=== PATIENT | male | born 1980 | race Caucasian/White ===

== ENCOUNTER 2016-08-31 19:04 | Emergency (ER) | payer SELFPAY ==
[2016-08-31 19:29] VITALS: BP 123/89
--- NOTE | 2016-08-31 20:37 | Emergency Department Report ---
ED General Adult HPI - General Chief complaint: Rectal Pain Stated complaint: FOUND MASS IN RECTUM Time Seen by Provider: 08/31/16 20:09 Source: patient Mode of arrival: Ambulatory Limitations: No Limitations - History of Present Illness Initial comments: This is a 36-year-old male that presents with feeling of a fall in his rectum area for the past 3 days. Patient thinks he may have hemorrhoids. Patient denies rectal bleeding, constipation, fever, chills, abdominal pain, nausea or vomiting. Patient that it is a heterosexual. Patient denies history of similar symptoms. Patient does not seem toxic or ill in appearance. No signs of distress noted. MD Complaint: hemorrhoids -: Gradual, days(s) (3) Location: buttocks (rectum) Radiation: non-radiation Severity scale (0 -10): 1 Quality: aching Consistency: constant Improves with: none Worsens with: none Associated Symptoms: denies other symptoms. denies: confusion, chest pain, cough, diaphoresis, headaches, loss of appetite, malaise, nausea/vomiting, rash , shortness of breath, syncope, weakness - Related Data Previous Rx's Medication Instructions Recorded Last Taken Type Hydrocortisone/Lidocaine/Aloe 1 each RC PRN #1 kit 08/31/16 Unknown Rx [Haritha-Kalin 2-2% Kit] Allergies Allergy/AdvReac Type Severity Reaction Status Date / Time No Known Allergies Allergy Verified 08/31/16 19:26 ED Review of Systems ROS: Stated complaint: FOUND MASS IN RECTUM Other details as noted in HPI Constitutional: denies: chills, fever Eyes: denies: eye pain, eye discharge, vision change ENT: denies: ear pain, throat pain Respiratory: denies: cough, shortness of breath, wheezing Cardiovascular: denies: chest pain, palpitations Endocrine: no symptoms reported Gastrointestinal: denies: abdominal pain, nausea, diarrhea Genitourinary: denies: urgency, dysuria Musculoskeletal: denies: back pain, joint swelling, arthralgia Skin: denies: rash, lesions Neurological: denies: headache, weakness, paresthesias Psychiatric: denies: anxiety, depression Hematological/Lymphatic: denies: easy bleeding, easy bruising ED Past Medical Hx - Past Medical History Previous Medical History?: No - Surgical History Past Surgical History?: No - Social History Smoking Status: Never Smoker Substance Use Type: None - Medications Home Medications: Home Medications Medication Instructions Recorded Confirmed Last Taken Type Hydrocortisone/Lidocaine/Aloe 1 each RC PRN #1 kit 08/31/16 Unknown Rx [Haritha-Kalin 2-2% Kit] ED Physical Exam - General Limitations: No Limitations General appearance: alert, in no apparent distress - Head Head exam: Present: atraumatic, normocephalic - Eye Eye exam: Present: normal appearance, PERRL, EOMI - ENT ENT exam: Present: normal exam, normal orophraynx, mucous membranes moist, TM's normal bilaterally - Neck Neck exam: Present: normal inspection, full ROM. Absent: tenderness, lymphadenopathy - Respiratory Respiratory exam: Present: normal lung sounds bilaterally. Absent: respiratory distress, wheezes, rales, rhonchi, stridor - Cardiovascular Cardiovascular Exam: Present: regular rate, normal rhythm. Absent: systolic murmur, diastolic murmur, rubs, gallop - GI/Abdominal GI/Abdominal exam: Present: soft, normal bowel sounds. Absent: distended, tenderness, guarding, rebound, rigid - Rectal Rectal exam: Present: deferred, normal inspection, normal rectal tone, hemorrhoids (1 cm round), tenderness, normal prostate. Absent: decreased rectal tone, heme (-) stool, heme (+) stool, black stool, bloody stool, fecal impaction, mass, prostate tenderness, prostate enlargement - exam: Present: normal inspection. Absent: testicular tenderness, urethral discharge, scrotal swelling, vertical testicular lie External exam: Present: normal external exam. Absent: erythema, swelling, lesions, lacerations, ecchymosis, bleeding - Extremities Exam Extremities exam: Present: normal inspection, full ROM, normal capillary refill. Absent: tenderness, pedal edema, joint swelling - Back Exam Back exam: Present: normal inspection, full ROM. Absent: tenderness, CVA tenderness (R), CVA tenderness (L) - Neurological Exam Neurological exam: Present: alert, oriented X3, CN II-XII intact, normal gait - Psychiatric Psychiatric exam: Present: normal affect, normal mood - Skin Skin exam: Present: warm, dry, intact, normal color. Absent: rash ED Course Vital Signs 08/31/16 19:26 Temperature 98.9 F Pulse Rate 61 Respiratory 16 Rate Blood Pressure 123/89 [Right] O2 Sat by Pulse 100 Oximetry ED Medical Decision Making - Medical Decision Making Ed course: This is a 36-year-old male that presents with a 1 cm hemorrhoid 1- I instructed the patient to increase fiber to reduce the constipation that may lead to hemorrhoids. 2- patient is also instructed that sits baths also helps to reveal irritation and pruritus as well as spasm of the anal spindle muscles. 3- patient was discharged with topical hydrocortisone/lidocaine to reveal acute pain associated with hemorrhoids. 4- patient was instructed to follow-up with her primary care doctor in 3-5 days or if symptoms worsen. 5- at the time of discharge the patient does not seem toxic or ill in appearance. No signs of distress noted. Patient agrees to discharge treatment plan. Critical care attestation.: If time is entered above; I have spent that time in minutes in the direct care of this critically ill patient, excluding procedure time. ED Disposition Clinical Impression: Hemorrhoids Qualifiers: Hemorrhoid type: unspecified Qualified Code(s): K64.9 - Unspecified hemorrhoids Disposition: DISCHARGED TO HOME OR SELFCARE Is pt being admited?: No Does the pt Need Aspirin: No Condition: Stable Instructions: Hemorrhoids (ED), Sitz Bath (GEN) Additional Instructions: Please follow-up with your primary care doctor due to 5 days If symptoms worsen report back to emergency room or your primary care doctor. I provided you with instruction on sitz baths which may help relieve irritation and pruritus as well as spasm of the anal sphincter muscles. Please increase her fiber supplements to reduce constipation Use hydrocortisone/lidocaine topical ointment as analgesic for acute pain associated with hemorrhoids. Prescriptions: Hydrocortisone/Lidocaine/Aloe [Haritha-Kalin 2-2% Kit] 1 each PRN #1 kit Referrals: PRIMARY CARE, [Primary Care Provider] - 3-5 Days Forms: Work/School Release Form(ED)
== END 2016-08-31 21:08 | disposition home or self-care (01) ==
LOC: ED 19:04
DX: K64.9 Unspecified hemorrhoids (principal)
CPT/HCPCS: 99282

== ENCOUNTER 2019-07-10 14:36 | Emergency (ER) | payer SELFPAY ==
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
[2019-07-10 20:22] VITALS: BP 118/87
== END 2019-07-10 20:05 | disposition home or self-care (01) ==
LOC: ED 14:36
DX: J02.8 Acute pharyngitis due to other specified organisms (principal); Z79.899 Other long term (current) drug therapy
CPT/HCPCS: 99282

== ENCOUNTER 2020-09-29 17:03 | Emergency (ER) | payer OTHER ==
[2020-09-29 17:31] VITALS: BP 124/80
[2020-09-29] MEDS ORDERED: NEOMY 3.5 MG/BACIT 400 UNITS/POLY B 5000 UNITS/GM OINT PACKET TP ONE (20:57)
[2020-09-29] MEDS ORDERED: IBUPROFEN 600 MG TAB PO ONE (20:57)
[2020-09-29] MEDS ORDERED: TETANUS,DIPH,PERTUSS(ACELL) VACCINE 0.5 ML SYRINGE IM ONE (20:57)
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
== END 2020-09-29 22:25 | disposition home or self-care (01) ==
LOC: ED 17:03
DX: S01.312A Laceration without foreign body of left ear, initial encounter (principal); Z79.1 Long term (current) use of non-steroidal anti-inflammatories (NSAID); Z79.899 Other long term (current) drug therapy; W22.8XXA Striking against or struck by other objects, initial encounter; Y93.89 Activity, other specified; Y92.89 Other specified places as the place of occurrence of the external cause; Y99.8 Other external cause status
CPT/HCPCS: 90471; 90715; 99283; A6250